=== PATIENT | female | born 1970 | race Caucasian/White ===

== ENCOUNTER → 2017-02-23 | Outpatient (CLI) | payer OTHER ==
[~2017-02-23] MED LIST: EFFEXOR XR75 MG PO; IBUPROFEN800 MG PO; IRON325 M1 PO; LEVOTHROID (S100 MCG PO; NORCO 5-325 MG1 TAB PO; PERCOCET 5-3251 EACH PO; VITAMIN D1000 UNIT PO; XANAX0.5 MG PO; ZINC CHELATED50 MG PO; ZYRTEC10 M3 PO
== END | disposition disaster alternative care site (69) ==
LOC: GBCOE 11:55
DX: Z12.31 Encounter for screening mammogram for malignant neoplasm of breast (principal)
CPT/HCPCS: G0202